=== PATIENT | female | born 2000 | race Caucasian/White ===

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

== ENCOUNTER 2021-02-01 08:20 | Emergency (ER) | payer BC, OTHER, MEDICAID ==
[~2021-02-01] VITALS: Ht 152.4 cm; Wt 77.1 kg
[~2021-02-01 08:20] MED LIST: KEFLEX500 M1 PO; NORCO 5-325 TA1 EACH PO
[2021-02-01] MEDS ORDERED: ADDERALL 10 MG10 MG PO ×2 (08:33)
[2021-02-01] MEDS ORDERED: PROZAC10 M1 ×2 (08:33)
[2021-02-01] MEDS ORDERED: HYDROXYZINE HCL10 M2 ×2 (08:34)
[2021-02-01 09:06] LABS: ABSOLUTE BASOPHILS 0.1 thou/uL (0.0-0.2); ABSOLUTE EOSINOPHILS 0.1 thou/uL (0.0-0.7); ABSOLUTE LYMPHOCYTES 2.9 thou/uL (0.8-5.3); ABSOLUTE MONOCYTES 0.7 thou/uL (0.0-1.2); BASOPHILS 0.6 %; EOSINOPHILS 1.1 %; HEMOGLOBIN 15.9 gm/dL (12.0-15.0); LYMPHOCYTES 24.4 %; MCH 31.1 pg (26.0-34.0); MCHC 33.9 g/dL (28.0-37.0); MCV 91.7 fL (80.0-100.0); NUCLEATED RBCS 0 /100WBC; PLATELET COUNT* 351 thou/uL (150-400); POLYS 67.9 %; RBC 5.12 mil/uL (4.20-5.00); RDW-CV 13.1 % (10.5-14.5); WBC 11.7 thou/uL (4.0-11.0)
[2021-02-01 09:08] LABS: URINE BILIRUBIN NEGATIVE (Negative); URINE BLOOD 3+ (Negative); URINE CLARITY CLEAR; URINE COLOR YELLOW; URINE GLUCOSE-RANDOM NEGATIVE (Negative); URINE KETONES NEGATIVE (Negative); URINE LEUKOCYTES-REFLEX NEGATIVE (Negative); URINE PROTEIN NEGATIVE (Negative); URINE SPECIFIC GRAVITY 1.025 (1.005-1.030); URINE UROBILINOGEN 0.2 E.U./dl (0.2-1.0)
[2021-02-01 09:11] LABS: URINE NITRITE-REFLEX POSITIVE (Negative)
[2021-02-01 09:14] LABS: CALCIUM 9.7 mg/dL (8.5-10.1); CREATININE 0.9 mg/dL (0.6-1.3); POTASSIUM 3.7 mmol/L (3.5-5.1)
[2021-02-01 09:18] LABS: CASTS None Seen /LPF (None Seen); CRYSTALS None Seen /LPF (None Seen); MUCUS 0-3 Light strn/LPF (None Seen); SQUAMOUS >10 Many /LPF (0-3); URINE WBC-REFLEX 0-5 Rare /HPF (0-5)
[2021-02-01 09:18] LABS: TOTAL BILIRUBIN 0.7 mg/dL (<0.1-1.0)
[2021-02-01] MEDS ORDERED: FLOMAX0.4 MG PO ×2 (10:37)
[2021-02-01] MEDS ORDERED: CEPHALEXIN500 MG PO ×2 (10:37)
[2021-02-01] MEDS ORDERED: ZOFRAN ODT4 MG DISSOLVE ×2 (10:37)
[2021-02-01] MEDS ORDERED: FLAGYL500 M1 PO ×2 (10:37)
[2021-02-01] MEDS ORDERED: HYDROCODON-ACE1 EAC7 PO ×2 (10:37)
[2021-02-01 11:14] VITALS: BP 122/66
--- NOTE | 2021-02-01 16:00 | EKG ---
[place] [address] ELECTROCARDIOGRAM REPORT Name: ELISAAPOLLO Ospina ANDREIA Room: [facility]#: [id number] Admission: 02/01/21 Attend Phys: Discharge: 02/01/21 Date of : 00 Date of Service: 02/01/21923 Report #: [id number] THIS REPORT FOR: //name// [facility] ED Test Date: 2021-02-01 Test Time: 09:24:27 Pat Name: APOLLO PÉREZ Department: Room: Gender: Bundle Clerk: : 2000 Requested By: Jevon Verdin Order Number: [id number] MD: Luan Jacobo Measurements Intervals [place] Rate: 65 P: 21 WI: 153 QRS: 50 QRSD: 80 T: 27 QT: 406 QTc: 423 Interpretive Statements Sinus arrhythmia No previous ECG available for comparison Electronically Signed On 02-01-2021 16:00:37 CDT by Luan Jacobo [email or web address] <ELECTRONICALLY SIGNED> By: Luan Jacobo MD, [facility] 02/01/211599 3 3 Luan Jacobo MD, FACC /EPI
== END 2021-02-01 11:15 | disposition home or self-care (01) ==
LOC: M.ERS 08:20
PROVIDERS: Emergency Medicine Emergency Medical Services
DX: N39.0 Urinary tract infection, site not specified (principal); N13.2 Hydronephrosis with renal and ureteral calculous obstruction; Z97.5 Presence of (intrauterine) contraceptive device; Z98.890 Other specified postprocedural states; Z79.899 Other long term (current) drug therapy; Z88.5 Allergy status to narcotic agent

== ENCOUNTER 2021-02-02 15:38 | Inpatient (IN) | payer BC, OTHER, MEDICAID ==
[~2021-02-02] VITALS: Ht 152.4 cm; Wt 79.4 kg
[~2021-02-02 15:38] MED LIST changes: +ADDERALL 10 MG10 MG PO; +CEPHALEXIN500 MG PO; +FLAGYL500 M1 PO; +FLOMAX0.4 MG PO; +HYDROCODON-ACE1 EAC7 PO; +HYDROXYZINE HCL10 M2; +PROZAC10 M1; +ZOFRAN ODT4 MG DISSOLVE
[2021-02-02 15:43] VITALS: BP 129/87
[2021-02-02 17:52] LABS: ABSOLUTE BASOPHILS 0.1 thou/uL (0.0-0.2); ABSOLUTE EOSINOPHILS 0.2 thou/uL (0.0-0.7); ABSOLUTE LYMPHOCYTES 2.5 thou/uL (0.8-5.3); ABSOLUTE MONOCYTES 0.6 thou/uL (0.0-1.2); BASOPHILS 0.6 %; EOSINOPHILS 1.6 %; HEMATOCRIT 46.5 % (37.0-47.0); HEMOGLOBIN 15.9 gm/dL (12.0-15.0); LYMPHOCYTES 24.2 %; MCH 30.9 pg (26.0-34.0); MCHC 34.2 g/dL (28.0-37.0); MCV 90.5 fL (80.0-100.0); MONOCYTES 6.1 %; NUCLEATED RBCS 0 /100WBC; PLATELET COUNT* 331 thou/uL (150-400); POLYS 67.5 %; RBC 5.13 mil/uL (4.20-5.00); RDW-CV 12.7 % (10.5-14.5); WBC 10.4 thou/uL (4.0-11.0)
[2021-02-02 17:54] LABS: URINE BILIRUBIN NEGATIVE (Negative); URINE BLOOD TRACE (Negative); URINE CLARITY CLEAR; URINE COLOR YELLOW; URINE GLUCOSE-RANDOM NEGATIVE (Negative); URINE KETONES NEGATIVE (Negative); URINE LEUKOCYTES-REFLEX NEGATIVE (Negative); URINE PROTEIN TRACE (Negative); URINE SPECIFIC GRAVITY >= 1.030 (1.005-1.030); URINE UROBILINOGEN 0.2 E.U./dl (0.2-1.0)
[2021-02-02 17:55] LABS: URINE NITRITE-REFLEX POSITIVE (Negative)
[2021-02-02 17:57] LABS: CALCIUM 9.3 mg/dL (8.5-10.1); CREATININE 0.9 mg/dL (0.6-1.3); POTASSIUM 3.7 mmol/L (3.5-5.1)
[2021-02-02 18:02] LABS: SQUAMOUS >10 Many /LPF (0-3)
[2021-02-02 18:03] LABS: BACTERIA-REFLEX 1-9 Few /HPF (None Seen); CASTS None Seen /LPF (None Seen); CRYSTALS None Seen /LPF (None Seen); URINE RBC 3-10 Few /HPF (0-2); URINE WBC-REFLEX 0-5 Rare /HPF (0-5)
[2021-02-02 18:09] LABS: ALBUMIN 4.4 g/dL (3.4-5.0); TOTAL BILIRUBIN 0.4 mg/dL (<0.1-1.0)
[2021-02-02 22:35] VITALS: BP 127/43
[2021-02-02 23:05] VITALS: BP 127/43
[2021-02-03 05:50] LABS: ABSOLUTE BASOPHILS 0.1 thou/uL (0.0-0.2); ABSOLUTE EOSINOPHILS 0.1 thou/uL (0.0-0.7); ABSOLUTE LYMPHOCYTES 2.2 thou/uL (0.8-5.3); ABSOLUTE MONOCYTES 0.7 thou/uL (0.0-1.2); ABSOLUTE NEUTROPHILS 6.9 thou/uL (1.6-8.1); BASOPHILS 0.6 %; EOSINOPHILS 1.3 %; HEMATOCRIT 41.3 % (37.0-47.0); HEMOGLOBIN 14.2 gm/dL (12.0-15.0); LYMPHOCYTES 22.1 %; MCH 31.1 pg (26.0-34.0); MCHC 34.2 g/dL (28.0-37.0); MCV 90.8 fL (80.0-100.0); MONOCYTES 6.6 %; MPV 8.3 fl. (7.2-11.1); NUCLEATED RBCS 0 /100WBC; PLATELET COUNT* 303 thou/uL (150-400); POLYS 69.4 %; RBC 4.55 mil/uL (4.20-5.00); RDW-CV 12.7 % (10.5-14.5)
[2021-02-03 05:51] LABS: CALCIUM 8.9 mg/dL (8.5-10.1); CREATININE 0.9 mg/dL (0.6-1.3)
--- NOTE | 2021-02-03 06:05 | NUR ---
Patient arrived on unit at approx 2230. No complaints of pain or discomfort noted. Home CPAP set up for use at bedside. 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
[2021-02-03 10:59] VITALS: BP 99/56
[2021-02-03 13:52] VITALS: BP 99/56
--- NOTE | 2021-02-03 17:14 | NUR ---
pt dc to home about 1500. iv out. pt stable. personal belongings sent with pt.
== END 2021-02-03 17:14 | disposition home or self-care (01) | DRG 690 ==
LOC: M.ERS 15:38 → M.TBA-ER 17:05 → M.ORTHSURG 22:26
PROVIDERS: Physician Assistant; ADMIT Internal Medicine; ATTEND Internal Medicine
DX: N13.6 Pyonephrosis (principal); N76.0 Acute vaginitis; F41.9 Anxiety disorder, unspecified; Z20.822 Contact with and (suspected) exposure to COVID-19; Z88.6 Allergy status to analgesic agent

== ENCOUNTER 2021-07-06 21:38 | Emergency (ER) | payer BC, OTHER, MEDICAID ==
[~2021-07-06] VITALS: Ht 152.4 cm; Wt 86.2 kg
[2021-07-06 22:01] LABS: URINE BILIRUBIN NEGATIVE (Negative); URINE BLOOD NEGATIVE (Negative); URINE CLARITY CLEAR; URINE COLOR YELLOW; URINE GLUCOSE-RANDOM NEGATIVE (Negative); URINE KETONES NEGATIVE (Negative); URINE LEUKOCYTES-REFLEX NEGATIVE (Negative); URINE NITRITE-REFLEX NEGATIVE (Negative); URINE PROTEIN NEGATIVE (Negative); URINE SPECIFIC GRAVITY 1.025 (1.005-1.030); URINE UROBILINOGEN 0.2 E.U./dl (0.2-1.0)
[2021-07-06 22:26] LABS: ABSOLUTE BASOPHILS 0.1 thou/uL (0.0-0.2); ABSOLUTE EOSINOPHILS 0.1 thou/uL (0.0-0.7); ABSOLUTE LYMPHOCYTES 2.2 thou/uL (0.8-5.3); ABSOLUTE MONOCYTES 0.6 thou/uL (0.0-1.2); ABSOLUTE NEUTROPHILS 8.3 thou/uL (1.6-8.1); EOSINOPHILS 1.1 %; HEMATOCRIT 41.4 % (37.0-47.0); HEMOGLOBIN 14.3 gm/dL (12.0-15.0); LYMPHOCYTES 19.3 %; MCH 31.6 pg (26.0-34.0); MCHC 34.6 g/dL (28.0-37.0); MCV 91.3 fL (80.0-100.0); MONOCYTES 5.5 %; MPV 8.5 fl. (7.2-11.1); NUCLEATED RBCS 0 /100WBC; PLATELET COUNT* 277 thou/uL (150-400); POLYS 73.1 %; RBC 4.53 mil/uL (4.20-5.00); RDW-CV 12.5 % (10.5-14.5); WBC 11.3 thou/uL (4.0-11.0)
[2021-07-06 22:33] LABS: CALCIUM 8.6 mg/dL (8.5-10.1); CREATININE 0.9 mg/dL (0.6-1.3); POTASSIUM 3.5 mmol/L (3.5-5.1)
[2021-07-06 22:37] LABS: TOTAL BILIRUBIN 0.3 mg/dL (<0.1-1.0); TOTAL PROTEIN 7.1 g/dL (6.4-8.2)
[2021-07-07] MEDS ORDERED: ZOFRAN ODT4 MG PO (01:22)
[2021-07-07] MEDS ORDERED: BENTYL 10 MG CA10 MG PO (01:31)
[2021-07-07 01:37] VITALS: BP 130/65
== END 2021-07-07 01:37 | disposition home or self-care (01) ==
LOC: M.ERS 21:38
PROVIDERS: Emergency Medicine
DX: R11.2 Nausea with vomiting, unspecified (principal); R10.31 Right lower quadrant pain; R19.7 Diarrhea, unspecified; F90.9 Attention-deficit hyperactivity disorder, unspecified type; Z98.890 Other specified postprocedural states; Z79.899 Other long term (current) drug therapy; Z88.5 Allergy status to narcotic agent